=== PATIENT | male | born 1955 | race Two or more races ===

== ENCOUNTER 2019-08-18 12:23 | Outpatient (CLI) | payer OTHER ==
[~2019-08-18 12:23] MED LIST: CEFADROXIL500 MG PO; NORVASC5 MG; PREDNISONE10 MG; ULTRACET PO; VALTREX1000 MG; VALTURNA; [UNRECOGNIZED DRUG - OTHER]; [UNRECOGNIZED DRUG - OTHER]
== END 2019-08-18 13:19 | disposition home or self-care (01) ==
LOC: LAB 12:23
DX: N20.0 Calculus of kidney (principal)

== ENCOUNTER → 2019-08-30 | Outpatient (CLI) | payer OTHER | END | disposition home or self-care (01) | LOC: TOM 08:27 | DX: R31.29 Other microscopic hematuria (principal) | CPT/HCPCS: 74178; Q9965 ==

== ENCOUNTER 2022-11-05 12:57 | Outpatient (CLI) | payer OTHER | END 2022-11-05 13:03 | disposition home or self-care (01) | LOC: RAD 12:57 | PROVIDERS: ATTEND Internal Medicine Infectious Disease | DX: R09.89 Other specified symptoms and signs involving the circulatory and respiratory systems (principal) ==

== ENCOUNTER 2023-01-15 08:52 | Outpatient (CLI) | payer OTHER | END 2023-01-15 09:04 | disposition home or self-care (01) | LOC: MRI 08:52 | PROVIDERS: ATTEND Otolaryngology | DX: R13.13 Dysphagia, pharyngeal phase (principal); M54.2 Cervicalgia | CPT/HCPCS: 70543; Q9965 ==

== ENCOUNTER 2023-02-02 10:36 | Outpatient (CLI) | payer OTHER | END 2023-02-02 10:41 | disposition home or self-care (01) | LOC: SONOGRAMA 10:36 | PROVIDERS: ATTEND Dermatology | DX: R22.32 Localized swelling, mass and lump, left upper limb (principal) ==

== ENCOUNTER 2023-10-27 08:17 | Outpatient (CLI) | payer OTHER | END 2023-10-27 08:21 | disposition home or self-care (01) | LOC: SONOGRAMA 08:17 | PROVIDERS: ATTEND Internal Medicine Gastroenterology | DX: R10.10 Upper abdominal pain, unspecified (principal); R19.7 Diarrhea, unspecified ==

== ENCOUNTER 2024-06-19 08:30 | Outpatient (CLI) | payer OTHER | END 2024-06-19 08:32 | disposition home or self-care (01) | LOC: NUCLEAR 08:30 | PROVIDERS: ATTEND Dermatology | DX: I87.2 Venous insufficiency (chronic) (peripheral) (principal) ==

== ENCOUNTER 2025-07-20 14:20 | Outpatient (CLI) | payer OTHER | END 2025-07-20 14:35 | disposition home or self-care (01) | LOC: TOM 14:20 | PROVIDERS: ATTEND Specialist | DX: J44.1 Chronic obstructive pulmonary disease with (acute) exacerbation (principal) ==